=== PATIENT | male | born 1985 | race Caucasian/White ===

== ENCOUNTER 2016-09-14 13:50 | Inpatient (IN) | payer OTHER ==
[~2016-09-14] VITALS: Ht 172.7 cm
[2016-09-14 14:30] VITALS: BP 133/81
[2016-09-14] MEDS ORDERED: CELEXA40 MG PO (15:12)
[2016-09-14 15:58] LABS: BASO % 0.3 % (0.0-1.0); EOS # 0.2 10*3/uL (0.0-0.4); EOS % 5.4 % (1.0-4.0); HEMATOCRIT 43.3 % (42.0-52.0); HEMOGLOBIN 14.2 g/dl (14.0-18.0); LYMPH # 0.9 10*3/uL (1.3-4.4); LYMPH % 26.6 % (27.0-41.0); MEAN CELL VOLUME 85.2 fl (80.0-94.0); MEAN CORPUSCULAR HGB CONC 32.8 g/dl (33.0-37.0); MEAN PLATELET VOLUME 9.3 fl (9.6-12.3); MONO # 0.3 10*3/uL (0.1-1.0); MONO % 7.6 % (3.0-9.0); NEUT # 2.1 10*3/uL (2.3-7.9); NEUT % 59.8 % (47.0-73.0); PLATELET COUNT AUTOMATED 137 10*3/uL (130-400); RED BLOOD COUNT 5.08 10*6/uL (4.50-5.90); RED CELL DISTRI WIDTH 15.8 % (0-14.5); WHITE BLOOD COUNT 3.5 10*3/uL (4.8-10.8)
[2016-09-14 16:00] VITALS: BP 138/75
[2016-09-14 16:07] LABS: PROTHROMBIN TIME 11.1 SECONDS (9.0-12.4)
[2016-09-14 16:13] LABS: ALBUMIN 3.3 gm/dl (3.1-4.5); ALKALINE PHOSPHATASE 185 U/L (45-117); BILIRUBIN, TOTAL 0.7 mg/dl (0.2-1.0); BUN 6 mg/dl (7-24); CARBON DIOXIDE 31 mmol/L (21-32); CHLORIDE 100 mmol/L (98-107); EST GLOM FILT AFRICAN AMERICAN > 60 ml/min; GLUCOSE 105 mg/dL (65-99); POTASSIUM 3.8 mmol/L (3.5-5.1); SGOT/AST 73 IU/L (3-35); SGPT/ALT 64 U/L (12-78); SODIUM 138 mmol/L (136-145); TOTAL PROTEIN 8.3 gm/dL (6.4-8.2)
[2016-09-14 16:49] LABS: BILIRUBIN NEGATIVE (NEGATIVE); BLOOD NEGATIVE (NEGATIVE); CLARITY CLEAR (CLEAR); COLOR YELLOW (YELLOW); GLUCOSE NEGATIVE (NEGATIVE); KETONE NEGATIVE (NEGATIVE); LEUKO ESTERASE 1+ (NEGATIVE); NITRITE NEGATIVE (NEGATIVE); PH 7.5 (5.0-9.0); PROTEIN NEGATIVE (NEGATIVE); UROBILINOGEN 0.2 E.U./dl (0.2-1.0)
[2016-09-14 17:00] LABS: URINE AMPHETAMINES < 1000 (1000ng/ml); URINE BARBITURATES < 200 (200ng/ml); URINE COCAINE > 300 (300ng/ml)
[2016-09-14 17:04] LABS: BACTERIA TRACE; URINE REFLEX COMMENT YES (NO)
[2016-09-14 20:00] VITALS: BP 116/68
[2016-09-15 08:00] VITALS: BP 137/80
[2016-09-15 08:12] LABS: HIV 1+2 AB + HIV1 P24 AG Non Reactive (Non Reactive)
[2016-09-15 13:00] VITALS: BP 133/77
[2016-09-15 16:00] VITALS: BP 109/62
[2016-09-15 20:00] VITALS: BP 121/66
[2016-09-16] VITALS: BP 118/73
[2016-09-16 08:00] VITALS: BP 121/71
[2016-09-16 16:00] VITALS: BP 119/60
[2016-09-17] VITALS: BP 128/69
[2016-09-17 06:47] LABS: HEMATOCRIT 44.8 % (42.0-52.0); HEMOGLOBIN 14.7 g/dl (14.0-18.0); MEAN CELL VOLUME 86.5 fl (80.0-94.0); MEAN CORPUSCULAR HGB 28.4 pg (27.0-31.0); MEAN CORPUSCULAR HGB CONC 32.8 g/dl (33.0-37.0); MEAN PLATELET VOLUME 9.5 fl (9.6-12.3); PLATELET COUNT AUTOMATED 142 10*3/uL (130-400); RED BLOOD COUNT 5.18 10*6/uL (4.50-5.90); RED CELL DISTRI WIDTH 15.9 % (0-14.5); WHITE BLOOD COUNT 3.5 10*3/uL (4.8-10.8)
[2016-09-17 07:11] LABS: EOSINOPHIL # 0.2 10*3/uL (0-0.4); EOSINOPHILS 7 % (1-4); LYMPHOCYTE # 1.5 10*3/uL (1.3-4.4); MONOCYTE # 0.2 10*3/uL (0.1-1.0); NEUTROPHIL # 1.5 10*3/uL (2.3-7.9); NEUTROPHILS 42 % (47-73); PLATELET SUFFICIENCY NORMAL (NORMAL); TOTAL CELLS COUNTED 100 #CELLS
[2016-09-17 07:24] LABS: EST GLOM FILT AFRICAN AMERICAN > 60 ml/min
[2016-09-17 08:00] VITALS: BP 120/61
[2016-09-17] MEDS ORDERED: THERA TABS1 TAB PO (12:01)
[2016-09-17] MEDS ORDERED: METHOCARBAMOL750 M1 PO (12:02)
== END 2016-09-17 12:11 | disposition home or self-care (01) | DRG 897 ==
LOC: 4E 13:50
PROVIDERS: Internal Medicine
DX: F11.23 Opioid dependence with withdrawal (principal); F10.239 Alcohol dependence with withdrawal, unspecified; F41.9 Anxiety disorder, unspecified; F32.9 Major depressive disorder, single episode, unspecified; F17.210 Nicotine dependence, cigarettes, uncomplicated; Z82.49 Family history of ischemic heart disease and other diseases of the circulatory system; B19.20 Unspecified viral hepatitis C without hepatic coma

== ENCOUNTER 2017-03-05 13:41 | Inpatient (IN) | payer OTHER ==
[~2017-03-05] VITALS: Ht 172.7 cm; Wt 83.3 kg
[~2017-03-05 13:41] MED LIST: CELEXA40 MG PO; METHOCARBAMOL750 M1 PO; THERA TABS1 TAB PO
--- NOTE | 2017-03-05 15:11 | NUR ---
D/C PLANNING: PATIENT WANTS TO GO TO [facility] FOR HIS AFTERCARE PLAN. TAWANDA KHAN B.A. STAMPING PRESS OPERATOR
[2017-03-05 15:20] VITALS: BP 128/76
[2017-03-05 15:52] LABS: BASO % 0.3 % (0.0-1.0); EOS % 0.3 % (1.0-4.0); HEMATOCRIT 45.3 % (42.0-52.0); HEMOGLOBIN 14.6 g/dl (14.0-18.0); LYMPH # 2.4 10*3/uL (1.3-4.4); LYMPH % 31.3 % (27.0-41.0); MEAN CELL VOLUME 84.8 fl (80.0-94.0); MEAN CORPUSCULAR HGB 27.3 pg (27.0-31.0); MEAN CORPUSCULAR HGB CONC 32.2 g/dl (33.0-37.0); MONO # 0.5 10*3/uL (0.1-1.0); MONO % 5.8 % (3.0-9.0); NEUT # 4.8 10*3/uL (2.3-7.9); NEUT % 61.7 % (47.0-73.0); PLATELET COUNT AUTOMATED 125 10*3/uL (130-400); RED BLOOD COUNT 5.34 10*6/uL (4.50-5.90); RED CELL DISTRI WIDTH 15.2 % (0-14.5); WHITE BLOOD COUNT 7.7 10*3/uL (4.8-10.8)
[2017-03-05 16:00] VITALS: BP 128/76
[2017-03-05 16:04] LABS: INTERNATIONAL NORM RATIO 1.1 (2.0-3.5)
[2017-03-05 16:08] LABS: ALBUMIN 3.6 gm/dl (3.1-4.5); ALKALINE PHOSPHATASE 124 U/L (45-117); BUN 6 mg/dl (7-24); CHLORIDE 106 mmol/L (98-107); LIPASE 179 U/L (73-393); POTASSIUM 3.6 mmol/L (3.5-5.1); SGOT/AST 72 IU/L (3-35); SGPT/ALT 53 U/L (12-78); SODIUM 140 mmol/L (136-145); TOTAL PROTEIN 9.8 gm/dL (6.4-8.2)
--- NOTE | 2017-03-05 16:55 | NUR ---
patient resting in bed call light in reach co of restless leg abdominal cramping and anxiety patient was medicated and will be reassessed for symptoms of withdrawal and the effectiveness of medication
[2017-03-05 18:32] LABS: BILIRUBIN 1+ (NEGATIVE); BLOOD TRACE-INTACT (NEGATIVE); CLARITY SL CLOUDY (CLEAR); COLOR YELLOW (YELLOW); GLUCOSE NEGATIVE (NEGATIVE); KETONE TRACE (NEGATIVE); LEUKO ESTERASE 1+ (NEGATIVE); NITRITE NEGATIVE (NEGATIVE)
[2017-03-05 18:41] LABS: BACTERIA 1+; WBC 21-30 wbc/hpf (0-5)
[2017-03-05 18:48] LABS: URINE AMPHETAMINES < 1000 (1000ng/ml); URINE BARBITURATES < 200 (200ng/ml); URINE BENZODIAZEPINES < 200 (200ng/ml); URINE CANNABINOIDS (THC) > 50 (50ng/ml); URINE COCAINE > 300 (300ng/ml); URINE METHADONE < 300 (300ng/ml); URINE OPIATES > 300 (300ng/ml)
[2017-03-05 18:50] LABS: URINE PHENCYCLIDINE < 25 (25ng/ml)
--- NOTE | 2017-03-05 18:55 | NUR ---
PATIENT ARRIVED TO FLOOR ORIENTED TO ROOM CALL LIGHT IN REACH NO PAIN AT HIS TIME SEE SHIFT ASSESSMENT
[2017-03-05 20:00] VITALS: BP 120/72
--- NOTE | 2017-03-05 20:40 | NUR ---
Patient displaying withdrawal symptoms, including: irritability, anxiousness, restlessness and agitation. Scheduled/PRN medications provided, SEE EMAR. Will continue to monitor medication effectiveness.
--- NOTE | 2017-03-05 22:00 | NUR ---
Patient resting. Responding to scheduled medications with fewer complaints of pain and anxiety.
[2017-03-06] VITALS (7 sets, daily range): BP systolic 124–140; BP diastolic 67–82
--- NOTE | 2017-03-06 02:00 | NUR ---
Patient resting. Responding to scheduled medications with fewer complaints of pain and anxiety.
--- NOTE | 2017-03-06 06:00 | NUR ---
Patient resting. Responding to scheduled medications with fewer complaints of pain and anxiety.
--- NOTE | 2017-03-06 07:48 | NUR ---
PRN VISTARIL 50 MG CAPSULE ADMINISTERED PO FOR ANXIETY. WILL MONITOR FOR EFFECTIVENESS. CALL LIGHT IN REACH.
--- NOTE | 2017-03-06 08:40 | NUR ---
VISTARIL EFFECTIVE. PATIENT RESTING IN BED, CALL LIGHT IN REACH.
--- NOTE | 2017-03-06 17:43 | NUR ---
PATIENT GIVEN ROBAXIN AND REQUIP FOR MUSCLE ACHES AND RESTLESS LEGS. WILL MONITOR FOR EFFECTIVENESS. CALL LIGHT IN REACH.
--- NOTE | 2017-03-06 18:45 | NUR ---
ROBAXIN AND REQUIP EFFECTIVE. PATIENT RESTING IN BED. CALL LIGHT IN REACH.
--- NOTE | 2017-03-06 20:00 | NUR ---
Patient resting. Responding to scheduled medications with fewer complaints of pain and anxiety.
--- NOTE | 2017-03-06 22:47 | NUR ---
Patient displaying withdrawal symptoms, including: irritability, anxiousness, restlessness and agitation. Scheduled/PRN medications provided, see emar. Will continue to monitor medication effectiveness.
[2017-03-07] VITALS: BP 127/81
--- NOTE | 2017-03-07 | NUR ---
Patient resting. Responding to scheduled medications with fewer complaints of pain and anxiety.
--- NOTE | 2017-03-07 06:00 | NUR ---
Patient resting. Responding to scheduled medications with fewer complaints of pain and anxiety.
[2017-03-07 06:40] LABS: BASO % 0.3 % (0.0-1.0); EOS # 0.1 10*3/uL (0.0-0.4); EOS % 4.1 % (1.0-4.0); LYMPH % 34.1 % (27.0-41.0); MEAN CELL VOLUME 85.2 fl (80.0-94.0); MEAN CORPUSCULAR HGB 27.7 pg (27.0-31.0); MEAN CORPUSCULAR HGB CONC 32.5 g/dl (33.0-37.0); MEAN PLATELET VOLUME 9.9 fl (9.6-12.3); MONO # 0.2 10*3/uL (0.1-1.0); MONO % 7.5 % (3.0-9.0); NEUT # 1.6 10*3/uL (2.3-7.9); NEUT % 53.7 % (47.0-73.0); PLATELET COUNT AUTOMATED 93 10*3/uL (130-400); RED BLOOD COUNT 4.33 10*6/uL (4.50-5.90); RED CELL DISTRI WIDTH 14.7 % (0-14.5); WHITE BLOOD COUNT 2.9 10*3/uL (4.8-10.8)
[2017-03-07 06:53] LABS: HEMATOCRIT 36.9 % (42.0-52.0)
[2017-03-07 07:08] LABS: ALBUMIN 2.9 gm/dl (3.1-4.5); ALKALINE PHOSPHATASE 110 U/L (45-117); BUN 8 mg/dl (7-24); CHLORIDE 104 mmol/L (98-107); CREATININE 0.81 mg/dL (0.70-1.30); POTASSIUM 3.3 mmol/L (3.5-5.1); SGOT/AST 65 IU/L (3-35); SGPT/ALT 44 U/L (12-78); SODIUM 137 mmol/L (136-145); TOTAL PROTEIN 7.9 gm/dL (6.4-8.2)
[2017-03-07 08:00] VITALS: BP 136/83
--- NOTE | 2017-03-07 08:33 | NUR ---
MEDICATED WITH PRN PO VISTARIL FOR ANXIETY.
[2017-03-07] MEDS ORDERED: XANAX0.5 MG PO (09:41)
--- NOTE | 2017-03-07 10:25 | NUR ---
Patient resting. Responding to scheduled medications with fewer complaints of pain and anxiety.
[2017-03-07 12:00] VITALS: BP 114/58; BP 136/83
--- NOTE | 2017-03-07 14:18 | NUR ---
MEDICATED WITH PRN PO MOTRIN AND ROBAXIN FOR BODY ACHES AND CRAMPS, ALSO PRN PO VISTARIL FOR ANXIETY.
--- NOTE | 2017-03-07 15:48 | NUR ---
Patient resting. Responding to scheduled medications with fewer complaints of pain and anxiety.
[2017-03-07 16:00] VITALS: BP 127/76
--- NOTE | 2017-03-07 18:58 | NUR ---
MEDICATED WITH PRN PO TYLENOL AND ATIVAN FOR HEADACHE AND JITTERS.
[2017-03-07 20:00] VITALS: BP 129/72
--- NOTE | 2017-03-07 21:52 | NUR ---
PATIENT MEDICATED WITH PO VISTARIL AND PO REQUIP FOR C/O ANXIETY AND RESTLESS LEGS. WILL MONITOR EFFECTIVENESS. CALL LIGHT LEFT IN REACH.
--- NOTE | 2017-03-07 22:06 | NUR ---
NOTIFIED OF PATIENT FOUND SMOKING IN [facility], [facility]. 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 PATIENT WILL BE LEAVING AMA.
--- NOTE | 2017-03-07 22:15 | NUR ---
PATIENT LEFT AMA AT THIS TIME, AMA PAPER SIGNED. BELONGINGS GATHERED FROM ROOM. PATIENT STATES HE WILL WAIT OUTSIDE FOR HIS RIDE.
== END 2017-03-07 22:35 | disposition left against medical advice (07) | DRG 894 ==
LOC: 5E 13:41
PROVIDERS: Internal Medicine; Registered Nurse; ADMIT Internal Medicine
DX: F11.23 Opioid dependence with withdrawal (principal); F10.239 Alcohol dependence with withdrawal, unspecified; F19.10 Other psychoactive substance abuse, uncomplicated; F32.9 Major depressive disorder, single episode, unspecified; B19.20 Unspecified viral hepatitis C without hepatic coma; Z53.21 Procedure and treatment not carried out due to patient leaving prior to being seen by health care provider; F41.9 Anxiety disorder, unspecified; F17.200 Nicotine dependence, unspecified, uncomplicated; Z71.6 Tobacco abuse counseling

== ENCOUNTER 2017-12-13 10:39 | Inpatient (IN) | payer OTHER ==
[~2017-12-13] VITALS: Ht 172.7 cm; Wt 82.6 kg
--- NOTE | ~2017-12-13 | CON ---
[place], [place] REPORT OF CONSULTATION NAME: DINESH VALDES UNIT #: [id number] ROOM: 405 DOCTOR: KARLA GROSS MD BIRTHDATE: [birth year] DOS: 12/15/2017 GASTROENDOSCOPOIC REPORT HISTORY OF PRESENT ILLNESS: A 32-year-old patient who has presented with chief complaint of aggressive alcohol and nicotine and cocaine and recreational drugs, concern he is drinking half a gallon of rum per day. He has been doing this habit for years. He is smoking 2 packs of cigarette and very frequent on his heroin use. His urine screening, THC positive, opiate positive. His CBC differential white blood cell was 2.9 initially, H and H of 10 and 30; platelet of 44. His comprehensive metabolic panel, electrolyte balance, phosphorus and magnesium 2.8 and 1.7. Bilirubin 0.9. Liver function test, 46 and 32. Alkaline phosphatase of 78. His H and H followup shows 8 and 26, repeat blood work from 9.2 and 28, platelet of 44. He has been undergoing detox protocol and he has been on Protonix. PAST MEDICAL HISTORY: Recreational drug including heroin specifically and alcohol dependency. Nicotine dependency, anxiety, hepatitis C. PAST SURGICAL HISTORY: Appendectomy, adenoidectomy, tonsillectomy. SOCIAL HISTORY: As identified above nicotine and alcohol and heroin specifically. Very heavy consumer. FAMILY HISTORY: Hypertension, anxiety. ALLERGIES: CECLOR. MEDICATIONS: At home, alprazolam, Celexa. REVIEW OF SYSTEMS: HEENT: Denies double vision, blurred vision. RESPIRATORY: Denies acute shortness of breath. CARDIOVASCULAR: Denies acute chest pain. DIGESTIVE SYSTEM: Complaining of initial emesis subsequently subsided. After detox has been undertaken. PHYSICAL EXAMINATION: VITAL SIGNS: Stable. HEENT: Head normocephalic, nontraumatic. Eyes: Pupils round, reactive. Sclerae nonicteric. Conjunctivae pink. Nose: Nonobstructed, nondeviated. Mouth free of aphthae ulcer, thrush. NECK: Supple, no thyromegaly, no cervical lymphadenopathy. CHEST: Symmetric anatomy, equal expansion. No wheeze, no rhonchi. HEART: Normal sinus rhythm, no gallop, no murmur. ABDOMEN: Soft. Hepato-organomegaly cannot be elicited. He has an infraumbilical scar related to his previous exploratory laparotomy and appendectomy. EXTREMITIES: No cyanosis, no pedal edema. Numerous tattoos, homemade, on trunk and upper extremities were noticed. [place], [place] REPORT OF CONSULTATION NAME: DINESH VALDES UNIT #: [id number] ROOM: 405 DOCTOR: RENATO SMITH,KARLA BIRTHDATE: [birth year] NEUROLOGIC: At the present time, alert and oriented. He still says he is jittery. IMPRESSION: Cirrhotic liver, most likely with abnormal liver function test, severe thrombocytopenia, heavy alcohol consumption, nicotine dependency, anemia of sequelae of alcohol consumption. He has no remarks or distress on utilizing this much chemical into the system. He is at the present time being transferred to ICU to the floor. We are going to continue with detoxification. Other adjunctive diagnoses as well as outlined in the chart, anxiety and poly recreational drugs, upper gastrointestinal bleed, thrombocytopenia, anemia, abnormal LFTs, alcoholic hepatitis, all has been recognized. PLAN AND DISCUSSION: Supportive measures. Hepatitis C is known. KARLA GROSS MD CM:CONSTR:REPORT OF CONSULTATION 1453 12/15/17 1822 interface
--- NOTE | ~2017-12-13 | EKG ---
[place], [place] ELECTROCARDIOGRAM REPORT NAME: DINESH VALDES UNIT #: [id number] ROOM: [facility] DOCTOR: QUIN DRAFT REPORT BIRTHDATE: [birth year] [facility] Test Date: 2017-12-13 Test Time: 10:57:20 Pat Name: DINESH VALDES Department: Room: Gender: Recruitment Intern: : 1985 Requested By: PATRICK ASHLEY Order Number: [id number] Reading MD: Chris Whitaker MD Measurements Intervals [place] Rate: 88 P: 71 NM: 124 QRS: -4 QRSD: 101 T: 30 QT: 403 QTc: 488 Interpretive Statements Sinus rhythm Borderline prolonged QT interval Electronically Signed On 12-14-2017 9:40:23 PDT by Chris Whitaker MD CM:EKGRPT:ELECTROCARDIOGRAM REPORT [id number] PATRICK ASHLEY EPIPHANY DRAFT REPORT PATRICK ASHLEY
[~2017-12-13 10:39] MED LIST changes: +XANAX0.5 MG PO
[2017-12-13 10:40] VITALS: BP 158/88
[2017-12-13 11:01] LABS: HEMATOCRIT 32.9 % (42.0-52.0); HEMOGLOBIN 10.5 g/dl (14.0-18.0); MEAN CELL VOLUME 87.7 fl (80.0-94.0); MEAN CORPUSCULAR HGB CONC 31.9 g/dl (33.0-37.0); MEAN PLATELET VOLUME 11.5 fl (9.6-12.3); PLATELET COUNT AUTOMATED 44 10*3/uL (130-400); RED BLOOD COUNT 3.75 10*6/uL (4.50-5.90); RED CELL DISTRI WIDTH 16.8 % (0-14.5); WHITE BLOOD COUNT 2.9 10*3/uL (4.8-10.8)
[2017-12-13 11:16] LABS: ALBUMIN 3.3 gm/dl (3.1-4.5); ALKALINE PHOSPHATASE 97 U/L (45-117); BUN 18 mg/dl (7-24); CHLORIDE 102 mmol/L (98-107); CREATININE 0.77 mg/dL (0.70-1.30); POTASSIUM 4.1 mmol/L (3.5-5.1); SGOT/AST 71 IU/L (3-35); SGPT/ALT 46 U/L (12-78); SODIUM 135 mmol/L (136-145)
[2017-12-13 11:17] LABS: BILIRUBIN NEGATIVE (NEGATIVE); BLOOD NEGATIVE (NEGATIVE); CLARITY CLEAR (CLEAR); COLOR YELLOW (YELLOW); GLUCOSE NEGATIVE (NEGATIVE); KETONE NEGATIVE (NEGATIVE); LEUKO ESTERASE NEGATIVE (NEGATIVE); NITRITE NEGATIVE (NEGATIVE); SPECIFIC GRAVITY <= 1.005 (1.005-1.030)
[2017-12-13 11:17] LABS: ACETAMINOPHEN (TYLENOL) < 2.0 ug/ml (10-30); ETHYL ALCOHOL < 3.0 mg/dl (<3); TROPONIN I < 0.015 ng/ml (<0.045)
[2017-12-13 11:21] LABS: URINE AMPHETAMINES < 1000 (1000ng/ml); URINE BARBITURATES < 200 (200ng/ml); URINE BENZODIAZEPINES < 200 (200ng/ml); URINE CANNABINOIDS (THC) > 50 (50ng/ml); URINE COCAINE < 300 (300ng/ml); URINE METHADONE < 300 (300ng/ml); URINE OPIATES > 300 (300ng/ml)
[2017-12-13 11:24] LABS: URINE PHENCYCLIDINE < 25 (25ng/ml)
[2017-12-13 11:25] LABS: BACTERIA TRACE; WBC 0-2 wbc/hpf (0-5)
[2017-12-13 11:28] LABS: TOTAL CELLS COUNTED 100 #CELLS
[2017-12-13 11:29] LABS: ROULEAUX SLIGHT
[2017-12-13 11:30] LABS: PLATELET SUFFICIENCY LOW (NORMAL)
[2017-12-13 11:40] VITALS: BP 137/76
[2017-12-13 12:00] VITALS: BP 137/76
[2017-12-13 18:00] VITALS: BP 142/67
[2017-12-13 20:00] VITALS: BP 160/80
[2017-12-13 22:24] LABS: HEMATOCRIT 27.3 % (42.0-52.0); HEMOGLOBIN 8.7 g/dl (14.0-18.0); MEAN CELL VOLUME 88.6 fl (80.0-94.0); MEAN CORPUSCULAR HGB 28.2 pg (27.0-31.0); MEAN CORPUSCULAR HGB CONC 31.9 g/dl (33.0-37.0); MEAN PLATELET VOLUME 11.6 fl (9.6-12.3); PLATELET COUNT AUTOMATED 40 10*3/uL (130-400); RED BLOOD COUNT 3.08 10*6/uL (4.50-5.90); RED CELL DISTRI WIDTH 16.4 % (0-14.5); WHITE BLOOD COUNT 2.7 10*3/uL (4.8-10.8)
[2017-12-13 22:49] LABS: ATYPICAL LYMPHS 1 % (0-0); BASOPHILS 1 % (0-1); TOTAL CELLS COUNTED 100 #CELLS
[2017-12-13 22:50] LABS: PLATELET SUFFICIENCY LOW (NORMAL)
[2017-12-14] VITALS: BP 130/68
[2017-12-14 04:00] VITALS: BP 142/70
[2017-12-14 08:00] VITALS: BP 124/76
[2017-12-14 08:07] LABS: HEMATOCRIT 26.8 % (42.0-52.0); HEMOGLOBIN 8.8 g/dl (14.0-18.0); MEAN CELL VOLUME 87.9 fl (80.0-94.0); MEAN CORPUSCULAR HGB 28.9 pg (27.0-31.0); MEAN CORPUSCULAR HGB CONC 32.8 g/dl (33.0-37.0); MEAN PLATELET VOLUME 9.6 fl (9.6-12.3); PLATELET COUNT AUTOMATED 40 10*3/uL (130-400); RED BLOOD COUNT 3.05 10*6/uL (4.50-5.90); RED CELL DISTRI WIDTH 16.6 % (0-14.5); WHITE BLOOD COUNT 2.8 10*3/uL (4.8-10.8)
[2017-12-14 08:19] LABS: ALKALINE PHOSPHATASE 78 U/L (45-117); BUN 24 mg/dl (7-24); CHLORIDE 109 mmol/L (98-107); CREATININE 0.73 mg/dL (0.70-1.30); PHOSPHOROUS 2.8 mg/dL (2.5-4.9); POTASSIUM 3.9 mmol/L (3.5-5.1); SGOT/AST 46 IU/L (3-35); SGPT/ALT 32 U/L (12-78); SODIUM 139 mmol/L (136-145); TOTAL PROTEIN 7.9 gm/dL (6.4-8.2)
[2017-12-14 08:30] LABS: ATYPICAL LYMPHS 1 % (0-0); PLATELET SUFFICIENCY LOW (NORMAL); POLYCHROMASIA SLIGHT; TOTAL CELLS COUNTED 100 #CELLS
[2017-12-14 12:00] VITALS: BP 114/69
[2017-12-14 16:00] VITALS: BP 119/60
[2017-12-14 20:00] VITALS: BP 101/50
[2017-12-15] VITALS: BP 123/76
[2017-12-15 04:00] VITALS: BP 96/59
[2017-12-15 05:40] LABS: HEMATOCRIT 28.6 % (42.0-52.0); HEMOGLOBIN 9.2 g/dl (14.0-18.0); MEAN CELL VOLUME 87.7 fl (80.0-94.0); MEAN CORPUSCULAR HGB 28.2 pg (27.0-31.0); MEAN CORPUSCULAR HGB CONC 32.2 g/dl (33.0-37.0); MEAN PLATELET VOLUME 11.9 fl (9.6-12.3); RED BLOOD COUNT 3.26 10*6/uL (4.50-5.90); RED CELL DISTRI WIDTH 16.9 % (0-14.5); WHITE BLOOD COUNT 3.2 10*3/uL (4.8-10.8)
[2017-12-15 06:02] LABS: ALBUMIN 3.1 gm/dl (3.1-4.5); ALKALINE PHOSPHATASE 77 U/L (45-117); BUN 19 mg/dl (7-24); CHLORIDE 105 mmol/L (98-107); CREATININE 0.86 mg/dL (0.70-1.30); POTASSIUM 3.8 mmol/L (3.5-5.1); SGOT/AST 64 IU/L (3-35); SGPT/ALT 44 U/L (12-78); SODIUM 137 mmol/L (136-145); TOTAL PROTEIN 8.1 gm/dL (6.4-8.2)
[2017-12-15 06:40] LABS: BASOPHILS 1 % (0-1); TOTAL CELLS COUNTED 100 #CELLS
[2017-12-15 06:42] LABS: PLATELET SUFFICIENCY LOW (NORMAL); ROULEAUX SLIGHT
[2017-12-15 06:43] LABS: PLATELET COUNT AUTOMATED 44 10*3/uL (130-400)
[2017-12-15 08:00] VITALS: BP 117/66
[2017-12-15 12:00] VITALS: BP 113/75
[2017-12-15 16:00] VITALS: BP 132/82
[2017-12-15 20:00] VITALS: BP 112/59
[2017-12-16] VITALS: BP 120/73
== END 2017-12-16 09:55 | disposition home or self-care (01) | DRG 897 ==
LOC: ED 10:39 → ICCU 11:01 → EDHOLD 11:01 → 4E 11:22 → ICCU 17:31 → 4E 12-15 14:02
PROVIDERS: Internal Medicine; Nurse Practitioner Family
DX: F11.23 Opioid dependence with withdrawal (principal); D61.818 Other pancytopenia; R65.10 Systemic inflammatory response syndrome (SIRS) of non-infectious origin without acute organ dysfunction; K92.2 Gastrointestinal hemorrhage, unspecified; E87.1 Hypo-osmolality and hyponatremia; F10.232 Alcohol dependence with withdrawal with perceptual disturbance; F41.9 Anxiety disorder, unspecified; F32.9 Major depressive disorder, single episode, unspecified; D64.9 Anemia, unspecified; E80.6 Other disorders of bilirubin metabolism; R73.9 Hyperglycemia, unspecified; K74.60 Unspecified cirrhosis of liver; R00.0 Tachycardia, unspecified; F17.210 Nicotine dependence, cigarettes, uncomplicated; K25.7 Chronic gastric ulcer without hemorrhage or perforation; B19.20 Unspecified viral hepatitis C without hepatic coma; F12.10 Cannabis abuse, uncomplicated; Z88.8 Allergy status to other drugs, medicaments and biological substances; Z90.49 Acquired absence of other specified parts of digestive tract; Z83.6 Family history of other diseases of the respiratory system; Z82.49 Family history of ischemic heart disease and other diseases of the circulatory system; Z84.89 Family history of other specified conditions

== ENCOUNTER 2018-06-28 15:09 | Inpatient (IN) | payer OTHER ==
[~2018-06-28] VITALS: Ht 172.7 cm; Wt 93.6 kg
--- NOTE | ~2018-06-28 | EKG ---
[place], [place] ELECTROCARDIOGRAM REPORT NAME: DINESH VALDES UNIT #: [id number] ROOM: 507 DOCTOR: QUIN DRAFT REPORT BIRTHDATE: [birth year] [facility] Test Date: 2018-06-28 Test Time: 15:45:57 Pat Name: DINESH VALDES Department: Room: 507 Gender: M Field Sales Manager: : 1985 Requested By: JUDITH SPARROW Order Number: [id number] Reading MD: Dash Barbosa MD Measurements Intervals [place] Rate: 71 P: 78 [place]: 149 QRS: -12 QRSD: 109 T: 25 QT: 387 QTc: 421 Interpretive Statements Sinus rhythm Compared to ECG 12/13/2017 10:57:20 No significant changes Electronically Signed On 06-28-2018 20:18:31 PST by Dash Barbosa MD CM:EKGRPT:ELECTROCARDIOGRAM REPORT 1545 2018 JUDITH GALICIA DRAFT REPORT JUDITH SPARROW DO
[2018-06-28 15:14] VITALS: BP 137/81
[2018-06-28 15:35] LABS: BILIRUBIN NEGATIVE (NEGATIVE); BLOOD NEGATIVE (NEGATIVE); CLARITY CLEAR (CLEAR); COLOR YELLOW (YELLOW); GLUCOSE NEGATIVE (NEGATIVE); KETONE NEGATIVE (NEGATIVE); LEUKO ESTERASE 1+ (NEGATIVE); NITRITE NEGATIVE (NEGATIVE); PH 7.5 (5.0-9.0); SPECIFIC GRAVITY <= 1.005 (1.005-1.030); UROBILINOGEN 0.2 E.U./dl (0.2-1.0)
[2018-06-28 15:43] LABS: URINE AMPHETAMINES < 1000 (1000ng/ml); URINE BARBITURATES < 200 (200ng/ml); URINE BENZODIAZEPINES > 200 (200ng/ml); URINE CANNABINOIDS (THC) > 50 (50ng/ml); URINE COCAINE > 300 (300ng/ml); URINE METHADONE < 300 (300ng/ml); URINE OPIATES > 300 (300ng/ml)
[2018-06-28 15:44] LABS: URINE PHENCYCLIDINE < 25 (25ng/ml)
[2018-06-28 15:50] LABS: BACTERIA 1+; EPITHELIAL CELLS 0-2; RBC 0-2 rbc/hpf (0-2); WBC 21-30 wbc/hpf (0-5)
[2018-06-28 16:15] VITALS: BP 131/74
[2018-06-28 16:30] VITALS: BP 131/74
[2018-06-28] MEDS ORDERED: CORGARD40 M1 PO (16:46)
[2018-06-28] MEDS ORDERED: XIFAXAN550 MG PO (16:47)
[2018-06-28] MEDS ORDERED: IRON325 M3 PO (16:48)
[2018-06-28] MEDS ORDERED: HARVONI 90-4001 EACH PO (16:49)
--- NOTE | 2018-06-28 17:49 | NUR ---
A 32, admitted to 5E, under the services of HOME Marquez DO with a diagnosis of OPIATE AND ALCOHOL WITHDRAW. Chief complaint is ALCOHOL ABUSE. Patient arrived via ambulatory from ER. Monitor applied. Initial assessment completed. Vital signs taken and recorded. HOME MARQUEZ DO notified of admission to the unit. Orders received. See assessment for past medical history, medications and allergies. Patient and/or family oriented to unit. [facility] visitation policy reviewed. Clothing/patient valuable form completed. SEMAJ ZAIDI
--- NOTE | 2018-06-28 19:00 | NUR ---
PT RESTING QUIETLY IN BED DURING BEDSIDE SHIFT REPORT. NO C/O VOICED AT PRESENT TIME. CALL LIGHT IN REACH.
[2018-06-28 20:00] VITALS: BP 98/77
--- NOTE | 2018-06-28 20:30 | NUR ---
Close observation will be maintained, vital signs to be monitored q4h. Patient displaying withdrawal symptoms, including: irritability, anxiousness, restlessness and agitation, complicated by impulsive behavior. Patient scores a 5 on the withdrawal scale. Scheduled/PRN medications provided, doctor notified of patient's agitation and AMA potential. Will continue to monitor medication effectiveness.
--- NOTE | 2018-06-28 21:00 | NUR ---
PT RESTING QUIETLY IN BED AT THIS TIME. PRN MEDS EFFECTIVE.
[2018-06-29] VITALS: BP 114/62
[2018-06-29 08:00] VITALS: BP 116/60
[2018-06-29 12:00] VITALS: BP 148/94
[2018-06-29 16:00] VITALS: BP 121/59
--- NOTE | 2018-06-29 19:16 | NUR ---
PATIENT RESTING IN BED WITH LIGHT OFF AND EYES CLOSED. RESPIRATIONS ARE EASY AND REGULAR. NO DISTRESS IS NOTED. CALL LIGHT IS WITHIN REACH. WILL MONITOR.
[2018-06-29 20:00] VITALS: BP 145/85
[2018-06-30] VITALS: BP 132/75
--- NOTE | 2018-06-30 04:42 | NUR ---
PATIEN RESTING IN BED WITH EYES CLOSED. RESPIRATIONS ARE EASY AND REGULAR. NO DISTRESS IS NOTED. CALL LIGHT IS WITHIN REACH. WILL MONITOR.
[2018-06-30 08:00] VITALS: BP 148/85
--- NOTE | 2018-06-30 11:15 | NUR ---
PATIENT WILL FOLLOW UP WITH [facility] IN [facility] FOR OUTPATIENT COUNSELING. BHASKAR CONLEY MS BOAT HOP
[2018-06-30 12:00] VITALS: BP 127/81
--- NOTE | 2018-06-30 12:46 | NUR ---
DR TELLEZ MADE AWARE THAT PT REFUSED HIS AM LAB WORK TODAY.
[2018-06-30 16:00] VITALS: BP 124/73
--- NOTE | 2018-06-30 19:04 | NUR ---
PATIENT RESTING IN BED WITH EYES CLOSED. RESPIRATIONS ARE EASY AND REGULAR. NO DISTRESS IS NOTED. CALL LIGHT IS WITHIN REACH. WILL CONTINUE TO MONITOR.
[2018-06-30 20:00] VITALS: BP 126/81
--- NOTE | 2018-06-30 21:51 | NUR ---
PATIENT STATES THAT HE ONLY TAKES ON DOSE OF THE NORDOLOL AT NIGHT AT HOME. SINCE RECIEVING LOPRESSOR SUBSTITUTE BID WHILE HERE HEART RATE IS LOWER 50'S-60'S. JOHNATHON WAS KELLEN CARPIO AND DR ALLAN WAS NOTIFIED. ALSO SPOKE DR ALLAN REGARDING PATIENTS REQUEST TO SHOWER. PER DR ALLAN OK TO REMOVED BOTTLE CARRIER FOR SHOWER BUT MUST REPLACE MONITOR AFTERWARDS.
[2018-07-01] VITALS: BP 123/74
--- NOTE | 2018-07-01 04:02 | NUR ---
RESTING IN BED ON LEFT SIDE WITH EYES CLOSED. RESPIRATIONS ARE EASY AND REGULAR. NO DISTRESS IS NOTED. CALL LIGHT IS WITHIN REACH. WILL MONITOR.
--- NOTE | 2018-07-01 11:42 | NUR ---
PT LEAVING [place], NOTIFIED, NURSING DIRECTOR OF HEALTHCARE SYSTEMS NOTIFIED
[2018-09-22] MEDS ORDERED: CELEXA40 MG PO (16:43)
[2018-09-22] MEDS ORDERED: FERROUS SULFAT325 MG PO (16:43)
[2018-09-22] MEDS ORDERED: HARVONI 90-4001 EACH PO (16:43)
[2018-09-22] MEDS ORDERED: XANAX1 MG PO (16:44)
[2018-09-22] MEDS ORDERED: XIFAXAN550 MG PO (16:45)
[2018-09-22] MEDS ORDERED: NADOLOL40 MG PO (16:45)
== END 2018-07-01 11:45 | disposition left against medical advice (07) | DRG 894 ==
LOC: ED 15:09 → EDHOLD 15:38 → 5E 15:38
PROVIDERS: Emergency Medicine; ADMIT Internal Medicine
DX: F11.23 Opioid dependence with withdrawal (principal); I85.10 Secondary esophageal varices without bleeding; F10.239 Alcohol dependence with withdrawal, unspecified; F17.210 Nicotine dependence, cigarettes, uncomplicated; K70.30 Alcoholic cirrhosis of liver without ascites; F41.9 Anxiety disorder, unspecified; F32.9 Major depressive disorder, single episode, unspecified; D64.9 Anemia, unspecified; Z90.49 Acquired absence of other specified parts of digestive tract; F12.10 Cannabis abuse, uncomplicated; Z81.8 Family history of other mental and behavioral disorders; Z82.49 Family history of ischemic heart disease and other diseases of the circulatory system; Z88.9 Allergy status to unspecified drugs, medicaments and biological substances; B19.20 Unspecified viral hepatitis C without hepatic coma

== ENCOUNTER 2020-07-17 11:41 | Inpatient (IN) | payer OTHER ==
[~2020-07-17] VITALS: Ht 172.7 cm; Wt 96.2 kg
[~2020-07-17 11:41] MED LIST changes: +CORGARD40 M1 PO; +FERROUS SULFAT325 MG PO; +HARVONI 90-4001 EACH PO; +IRON325 M3 PO; +NADOLOL40 MG PO; +XANAX1 MG PO; +XIFAXAN550 MG PO
[2020-07-17 11:57] VITALS: BP 144/89
[2020-07-17 12:45] LABS: ACT PARTIAL THROMBO TIME 28.5 SECONDS (20.0-32.1); INTERNATIONAL NORM RATIO 1.2 (2.0-3.5)
[2020-07-17 12:46] LABS: ALBUMIN 3.6 gm/dl (3.1-4.5); ALKALINE PHOSPHATASE 108 U/L (45-117); BUN 8 mg/dl (7-24); CHLORIDE 111 mmol/L (98-107); CREATININE 0.78 mg/dL (0.70-1.30); POTASSIUM 3.5 mmol/L (3.5-5.1); SGOT/AST 40 IU/L (3-35); SGPT/ALT 38 U/L (12-78); SODIUM 143 mmol/L (136-145); TOTAL PROTEIN 8.3 gm/dL (6.4-8.2)
[2020-07-17 12:50] LABS: BASO % 0.5 % (0.0-1.0); EOS # 0.1 10*3/uL (0.0-0.4); EOS % 1.7 % (1.0-4.0); LYMPH # 1.6 10*3/uL (1.3-4.4); LYMPH % 37.6 % (27.0-41.0); MEAN CELL VOLUME 85.6 fl (80.0-94.0); MEAN CORPUSCULAR HGB 27.3 pg (27.0-31.0); MEAN CORPUSCULAR HGB CONC 31.9 g/dl (33.0-37.0); MEAN PLATELET VOLUME 9.3 fl (9.6-12.3); MONO # 0.3 10*3/uL (0.1-1.0); MONO % 7.5 % (3.0-9.0); NEUT # 2.2 10*3/uL (2.3-7.9); NEUT % 52.2 % (47.0-73.0); PLATELET COUNT AUTOMATED 106 10*3/uL (130-400); RED BLOOD COUNT 5.49 10*6/uL (4.50-5.90); WHITE BLOOD COUNT 4.1 10*3/uL (4.8-10.8)
[2020-07-17 13:20] LABS: BILIRUBIN Negative (Negative); BLOOD Negative (Negative); CLARITY Clear (Clear); COLOR Dark Yellow (Yellow); GLUCOSE Negative (Negative); KETONE Trace (Negative); LEUKO ESTERASE Negative (Negative); NITRITE Negative (Negative); UROBILINOGEN 0.2 E.U./dl (0.0-1.0)
[2020-07-17 13:29] LABS: URINE AMPHETAMINES > 1000 (1000ng/ml); URINE BARBITURATES < 200 (200ng/ml); URINE BENZODIAZEPINES < 200 (200ng/ml); URINE CANNABINOIDS (THC) > 50 (50ng/ml); URINE COCAINE < 300 (300ng/ml); URINE METHADONE < 300 (300ng/ml); URINE OPIATES < 300 (300ng/ml)
[2020-07-17 13:30] LABS: URINE PHENCYCLIDINE < 25 (25ng/ml)
[2020-07-17 13:31] LABS: BACTERIA TRACE; MUCOUS 1+; URIC ACID CRYSTALS 2+
[2020-07-17 14:10] VITALS: BP 137/88
[2020-07-17 20:00] VITALS: BP 134/78
[2020-07-18] VITALS: BP 128/74
[2020-07-18 08:00] VITALS: BP 133/71
[2020-07-18 12:00] VITALS: BP 122/67
[2020-07-18 16:00] VITALS: BP 124/83
[2020-07-18 20:00] VITALS: BP 144/81
[2020-07-19] VITALS: BP 139/84
[2020-07-19 08:00] VITALS: BP 112/78
[2020-07-19 13:00] VITALS: BP 122/72
[2020-07-19 16:00] VITALS: BP 136/89
[2020-07-19 20:00] VITALS: BP 123/68
[2020-07-20] VITALS: BP 122/70
== END 2020-07-20 09:05 | disposition left against medical advice (07) | DRG 894 ==
LOC: ED 11:41 → EDHOLD 12:35 → 5E 12:35
PROVIDERS: Emergency Medicine; ADMIT Internal Medicine; ATTEND Internal Medicine
DX: F11.23 Opioid dependence with withdrawal (principal); F10.229 Alcohol dependence with intoxication, unspecified; E83.41 Hypermagnesemia; F41.9 Anxiety disorder, unspecified; K70.30 Alcoholic cirrhosis of liver without ascites; B19.20 Unspecified viral hepatitis C without hepatic coma; F32.9 Major depressive disorder, single episode, unspecified; F10.239 Alcohol dependence with withdrawal, unspecified; F17.210 Nicotine dependence, cigarettes, uncomplicated; Z53.29 Procedure and treatment not carried out because of patient's decision for other reasons; D72.819 Decreased white blood cell count, unspecified; D69.6 Thrombocytopenia, unspecified; E87.8 Other disorders of electrolyte and fluid balance, not elsewhere classified; Z71.6 Tobacco abuse counseling; Z88.8 Allergy status to other drugs, medicaments and biological substances; Z90.49 Acquired absence of other specified parts of digestive tract; Z81.8 Family history of other mental and behavioral disorders; Z82.49 Family history of ischemic heart disease and other diseases of the circulatory system; Z83.6 Family history of other diseases of the respiratory system

== ENCOUNTER 2021-03-13 15:32 | Emergency (ER) | payer OTHER | END 2021-03-13 23:07 | disposition left against medical advice (07) | LOC: ED 15:32 | DX: F10.239 Alcohol dependence with withdrawal, unspecified (principal); Z53.21 Procedure and treatment not carried out due to patient leaving prior to being seen by health care provider ==